=== PATIENT | female | born 1960 ===

== ENCOUNTER 2016-10-22 22:47 | Emergency (ER) | payer MEDICAID ==
[2016-10-22 22:47] VITALS: BMI 22.3
[2016-10-22 23:08] VITALS: PULSE 81; TEMP 98.8; O2SAT 95
--- NOTE | 2016-10-22 23:35 | ED PDOC ---
Arrival/HPI - General Chief Complaint: Anxiety Time Seen by Provider: 10/22/16 23:30 Historian: Patient - History of Present Illness Narrative History of Present Illness (Text): 10/22/16 23:30 56 y/o female, pmh including hyperthyroidism/pneumonia, psychiatric history of anxiety, post menopausal, nkda, c/o feeling anxious and scared tonight x 2 hours. pt. stated that she was at home taking care of her son's baby which the son has not been coming home tonight, very concern, started to get anxious, refused psychiatric evaluation, no homicidal or suicidal ideation, no auditory or visual hallucination, no other medical or psychological complaints. Past Medical History - Provider Review Nursing Documentation Reviewed: Yes - Infectious Disease Hx of Infectious Diseases: None - Tetanus Immunization Tetanus Immunization: Unknown - Cardiac Hx Cardiac Disorders: Yes - Pulmonary Hx Respiratory Disorders: Yes Hx Bronchitis: Yes - Neurological Hx Neurological Disorder: No - HEENT Hx HEENT Disorder: No - Renal Hx Renal Disorder: No - Endocrine/Metabolic Hx Endocrine Disorders: Yes ("pre diabetic") - Hematological/Oncological Hx Blood Disorders: No - Integumentary Hx Dermatological Disorder: No - Musculoskeletal/Rheumatological Hx Musculoskeletal Disorders: Yes Hx Arthritis: Yes Hx Herniated Disk: Yes Other/Comment: FIBROMYALGIA - Gastrointestinal Hx Gastrointestinal Disorders: Yes Other/Comment: INGUINAL HERNIA REPAIR L - Genitourinary/Gynecological Hx Genitourinary Disorders: No - Psychiatric Hx Psychophysiologic Disorder: Yes Hx Anxiety: Yes Hx Bipolar Disorder: Yes Hx Depression: Yes Hx Substance Use: No - Surgical History Hx Section: Yes Other/Comment: hernia - Anesthesia Hx Anesthesia: Yes Hx Anesthesia Reactions: No Hx Malignant Hyperthermia: No - Suicidal Assessment Feels Threatened In Home Enviroment: No Family/Social History - Physician Review Nursing Documentation Reviewed: Yes Family/Social History: Unknown Family HX Smoking Status: Never Smoked Hx Alcohol Use: No Hx Substance Use: No Hx Substance Use Treatment: No Allergies/Home Meds Allergies/Adverse Reactions: Allergies No Known Allergies Allergy (Verified 05/28/16 12:30) Home Medications: Home Meds Medication Instructions Recorded Confirmed RX: Unobtainable 10/22/16 10/22/16 Review of Systems - Review of Systems Constitutional: absent: Fatigue, Fevers Eyes: absent: Vision Changes ENT: absent: Hearing Changes Respiratory: absent: SOB, Cough Cardiovascular: absent: Chest Pain Gastrointestinal: absent: Abdominal Pain, Nausea, Vomiting Skin: absent: Rash, Pruritis, Skin Lesions Neurological: absent: Headache, Dizziness, Focal Weakness Psychiatric: Anxiety. absent: Depression, Suicidal Ideation Physical Exam Vital Signs Reviewed: Yes Vital Signs Temp Pulse Resp BP Pulse Ox 10/22/16 23:04 98.8 F 81 18 112/60 95 Temperature: Afebrile Blood Pressure: Normal Pulse: Regular Respiratory Rate: Normal Appearance: Positive for: Well-Appearing, Non-Toxic Pain Distress: None Mental Status: Positive for: Alert and Oriented X 3 - Systems Exam Head: Present: Atraumatic, Normocephalic Pupils: Present: PERRL Extroacular Muscles: Present: EOMI Conjunctiva: Present: Normal Mouth: Present: Moist Mucous Membranes Neck: Present: Normal Range of Motion Respiratory/Chest: Present: Clear to Auscultation, Good Air Exchange. No: Respiratory Distress, Accessory Muscle Use Cardiovascular: Present: Regular Rate and Rhythm, Normal S1, S2. No: Murmurs Abdomen: Present: Normal Bowel Sounds. No: Tenderness, Distention, Peritoneal Signs Back: Present: Normal Inspection Upper Extremity: Present: Normal Inspection. No: Cyanosis, Edema Lower Extremity: Present: Normal Inspection. No: Edema Neurological: Present: GCS=15, Speech Normal, Motor Func Grossly Intact, Gait Normal, Memory Normal Skin: Present: Warm, Dry, Normal Color. No: Rashes Psychiatric: Present: Alert, Oriented x 3, Normal Insight, Normal Concentration , Anxious Medical Decision Making ED Course and Treatment: 10/22/16 23:38 -ekg -thyroid panel -xanax 0.5mg po -observe and reassess 10/23/16 01:44 -EKG: NSR @ 74 BPM, no ST elevation or depression, no T wave inversion, compared with previous ekg. -Pt. stated that she feels completely relief now, smiling and laughing, non- anxious, comfortable, wants to be discharged home, will discharge home. -Discharge home with education on avoid caffeine products, follow up with your own pmd and psychiatrist within 2 days, return to the ER for any new or worsening signs or symptoms. - EKG Interpretation EKG Interpretation (Text): 10/23/16 01:02 NSR @ 74 BPM, no ST elevation or depression, no T wave inversion, compared with previous ekg. Interpreted by ED Physician: Yes Type: 12 lead EKG Comparison: Com.w/previous EKG - Medication Orders Current Medication Orders: Discontinued Medications Alprazolam (Xanax) 0.5 mg PO STAT STA PRN Reason: Protocol Stop: 10/22/16 23:36 Last Admin: 10/23/16 00:15 Dose: 0.5 mg - PA / DENTAL APPLIANCE MECHANIC / Resident Statement / has reviewed & agrees with the documentation as recorded. Disposition/Present on Arrival - Present on Arrival Any Indicators Present on Arrival: No History of DVT/PE: No History of Uncontrolled Diabetes: No Urinary Catheter: No History of Decub. Ulcer: No History Surgical Site Infection Following: None - Disposition Have Diagnosis and Disposition been Completed?: Yes Diagnosis: Anxiety Disposition Time: 01:46 Patient Plan: Discharge Condition: IMPROVED Additional Instructions: Discharge home with education on avoid caffeine products, follow up with your own pmd and psychiatrist within 2 days, return to the ER for any new or worsening signs or symptoms. Referrals: Isabel Amin DO [Primary Care Provider] - Follow up with primary [facility] [place] [Outside] - Follow up with primary [facility] [Outside] - Follow up with primary Forms: WORK NOTE
[2016-10-23 01:35] LABS: FREE T4 1.02 ng/dL (0.78-2.19)
[2016-10-23 01:49] LABS: THYROID STIMULATING HORMONE 1.25 mIU/mL (0.46-4.68)
[2016-10-23 02:08] VITALS: BP 115/43; RESP 16
--- NOTE | 2016-10-23 15:18 | CARD ---
APPROVED REPORT EKG Measurement Heart [id number] <Conclusion> Normal sinus rhythm Normal ECG
== END 2016-10-23 02:08 | disposition home or self-care (01) ==
LOC: ED 22:47
DX: F41.9 Anxiety disorder, unspecified (principal)

== ENCOUNTER 2016-12-11 17:30 | Emergency (ER) | payer MEDICAID ==
[2016-12-11 17:30] VITALS: BMI 22.3
[2016-12-11 18:35] VITALS: TEMP 98.3
[2016-12-11 18:36] LABS: BASO # 0.07 K/mm3 (0.0-2.0); EOS # 0.1 (0.0-0.7); EOS % 1.1 % (1.5-5.0); GRAN # 3.72 (1.4-6.5); GRAN % 51.7 % (50.0-68.0); HEMOGLOBIN 13.6 gm/dL (12.0-16.0); LYMPH # 2.9 (1.2-3.4); LYMPH % 39.9 % (22.0-35.0); MEAN CELL VOLUME 88.8 fL (80.0-105.0); MEAN CORPUSCULAR HGB CONC 34.9 g/dl (31.0-37.0); MONO # 0.5 (0.1-0.6); MONO % 6.3 % (1.0-6.0); PLATELET COUNT 321 10^3/uL (120.0-450.0); RBC 4.39 10^6/uL (3.5-6.1); RED CELL DISTRIBUTION WIDTH 13.1 % (11.5-14.5); WHITE BLOOD COUNT 7.2 10^3/ul (4.5-11.0)
[2016-12-11 18:40] LABS: PH,URINE 6.5 (4.7-8.0); URINE BILIRUBIN NEGATIVE (NEGATIVE); URINE BLOOD NEGATIVE (NEGATIVE); URINE GLUCOSE (UA) NEGATIVE (NEGATIVE); URINE LEUKOCYTE ESTERASE NEGATIVE Leu/uL (NEGATIVE); URINE NITRATE NEGATIVE (NEGATIVE); URINE PROTEIN NEGATIVE mg/dL (<30 mg/dL); URINE UROBILINOGEN 0.2 E.U./dL (<1 E.U./dL)
[2016-12-11 18:48] LABS: URINE APPEARANCE CLEAR (CLEAR); URINE COLOR YELLOW (YELLOW)
[2016-12-11 19:18] LABS: ALB/GLOB RATIO 1.4 (1.1-1.8); ALBUMIN 4.5 g/dL (3.0-4.8); ALT/SGPT 31 U/L (7-56); AST/SGOT 35 U/L (15-39); BLOOD UREA NITROGEN 17 mg/dL (7-21); CALCIUM 9.2 mg/dL (8.4-10.5); GFR AFRICAN-AMERICAN > 60; GFR NON-AFRICAN AMERICAN > 60
--- NOTE | 2016-12-11 19:49 | CT ---
EXAM: CT Abdomen and Pelvis Without Intravenous Contrast CLINICAL HISTORY: 56 years old, female; Pain; Abdominal pain; Localized; Left lower quadrant (llq); Prior surgery; Surgery date: 6+ months; Surgery type: Hernia 2011; Additional info: Llq abdominalpain/pelvis TECHNIQUE: Axial computed tomography images of the abdomen and pelvis without intravenous contrast. This CT exam was performed using one or more of the following dose reduction techniques: automated exposure control, adjustment of the mA and/or kV according to patient size, and/or use of iterative reconstruction technique. Coronal and sagittal reformatted images were created and reviewed. EXAM DATE/TIME: 12/11/2016 6:19 PM COMPARISON: CT - PELVIS W/O CONTRAST 10/04/2016 11:17:49 AM FINDINGS: Lower thorax: Heart size is normal. There is a small hiatal hernia. There is minimal scarring at the lung bases. ABDOMEN: Liver: unremarkable Gallbladder and bile ducts: unremarkable Pancreas: unremarkable Spleen: unremarkable Adrenals: unremarkable Kidneys and ureters: unremarkable Stomach and bowel: Lack of intravenous contrast limits evaluation of solid viscera and bowel. Stomach is distended with a large amount of ingested material. The patient is normal. There is no small bowel obstruction. Terminal ileum is unremarkable. Appendix is unremarkable. There is a moderately large amount of stool in the colon. Appendix: See stomach and bowel PELVIS: Bladder: Urinary bladder is partially distended. Reproductive: Uterus and adnexal structures are unremarkable.. There is a dominant follicle in the right ovary. ABDOMEN and PELVIS: Intraperitoneal space: There is no free air.There is no significant fluid. Bones/joints: There are degenerative changes in the osseus structures. There is a bone island in the left ilium. Soft tissues: There is a fat-containing umbilical hernia. Vasculature: There are calcified phleboliths. Vascular structures are unremarkable. Lymph nodes: There is no pathologic adenopathy. IMPRESSION: Limited evaluation of solid viscera due to lack of intravenous contrast, no acute solid visceral abnormality identified; no renal or ureteral stones or hydronephrosis; constipation; degenerative osseous change Additional findings as described above.
--- NOTE | 2016-12-11 20:40 | US ---
EXAM: US Pelvis Complete, Transabdominal CLINICAL HISTORY: 56 years old, female; Pain; Pelvic pain; Additional info: Left lower pelvic pain postmenopausal for 1 year TECHNIQUE: Real-time transabdominal pelvic ultrasound (complete) with image documentation. COMPARISON: CT abdomen and pelvis 12/11/16 FINDINGS: Uterus: Uterus measures approximately 8.5 x 3.4 x 4.3 cm. Endometrium measures approximate 9.1 mm in width. Right ovary: Right ovary measures approximately 2.8 x 2 x 2.7 cm. There is a dominant follicle. Left ovary: Left ovary measures approximately 3.6 x 2.4 x 2.4 cm. There are small follicles Free fluid: No free fluid. Bladder: Is only partially distended IMPRESSION: Mildly prominent endometrium; dominant follicle in the right ovary EXAM: US Pelvis, Transvaginal CLINICAL HISTORY: 56 years old, female; Pain; Pelvic pain; Additional info: Left lower pelvic pain TECHNIQUE: Real-time transvaginal pelvic ultrasound (complete) with image documentation. Transvaginal imaging was used for better evaluation of the endometrium and adnexa. EXAM DATE/TIME: 12/11/2016 6:19 PM COMPARISON: CT abdomen and pelvis 12/11/16 FINDINGS: Uterus: Endometrium measures 10.1 mm in width. The cervix measures approximately 3.5 cm in length. There are nabothian cysts in the cervix. Right ovary: Right ovary measures 2.98 x 1.59 x 2.42 cm. There is a dominant follicle, less than 2 cm in diameter.There is expected blood flow on Doppler imaging Left ovary: Left ovary measures 2.12 x 1.28 x 2.12 cm. There are multiple follicles. There is expected blood flow on Doppler imaging Free fluid: There is no free fluid. Adnexa: There no adnexal masses IMPRESSION: Follicles in both ovaries, no torsion; thickened endometrium
[2016-12-11 20:52] VITALS: BP 106/65; PULSE 77; RESP 18; O2SAT 99
--- NOTE | 2016-12-11 21:40 | ED PDOC ---
Arrival/HPI - General Chief Complaint: Lower Extremity Problem/Injury Time Seen by Provider: 12/11/16 17:54 Historian: Patient - History of Present Illness Narrative History of Present Illness (Text): 12/11/16 21:41 56yr old female presents today with worsening left lower abdominal pain and left sided hip pain. pt states she has been having intermittent left sided abdominal pain patient states she had a CAT scan that showed a questionable finding in the left iliac bone. Patient states she's been having continued pain since then. Patient denies fevers or chills. No nausea vomiting diarrhea or constipation. Denies urinary symptoms. No bladder or bowel incontinence. Patient denies back pain. Patient denies numbness weakness or tingling in the lower extremity. Patient states she has a follow-up appointment with the orthopedist on December 18. Time/Duration: > month Symptom Onset: Gradual Symptom Course: Worsening Quality: Aching, Pressure Severity Level: 4 Past Medical History - Provider Review Nursing Documentation Reviewed: Yes - Travel History Have you recently traveled outside [place] w/in the past 3 mons?: No - Infectious Disease Hx of Infectious Diseases: None - Tetanus Immunization Tetanus Immunization: Unknown - Cardiac Hx Cardiac Disorders: Yes - Pulmonary Hx Respiratory Disorders: Yes Hx Bronchitis: Yes - Neurological Hx Neurological Disorder: No - HEENT Hx HEENT Disorder: No - Renal Hx Renal Disorder: No - Endocrine/Metabolic Hx Endocrine Disorders: Yes ("pre diabetic") - Hematological/Oncological Hx Blood Disorders: No - Integumentary Hx Dermatological Disorder: No - Musculoskeletal/Rheumatological Hx Musculoskeletal Disorders: Yes Hx Arthritis: Yes Hx Herniated Disk: Yes Hx Osteoporosis: Yes Other/Comment: FIBROMYALGIA - Gastrointestinal Hx Gastrointestinal Disorders: Yes Other/Comment: INGUINAL HERNIA REPAIR L - Genitourinary/Gynecological Hx Genitourinary Disorders: No - Psychiatric Hx Psychophysiologic Disorder: Yes Hx Anxiety: Yes Hx Bipolar Disorder: Yes Hx Depression: Yes Hx Substance Use: No - Surgical History Hx Section: Yes Other/Comment: hernia - Anesthesia Hx Anesthesia: Yes Hx Anesthesia Reactions: No Hx Malignant Hyperthermia: No - Suicidal Assessment Feels Threatened In Home Enviroment: No Family/Social History - Physician Review Nursing Documentation Reviewed: Yes Family/Social History: Unknown Family HX Smoking Status: Never Smoked Hx Alcohol Use: No Hx Substance Use: No Hx Substance Use Treatment: No Allergies/Home Meds Allergies/Adverse Reactions: Allergies No Known Allergies Allergy (Verified 12/11/16 17:59) Home Medications: Home Meds Medication Instructions Recorded Confirmed Unobtainable 10/22/16 12/11/16 Review of Systems - Review of Systems Constitutional: absent: Fatigue, Fevers Respiratory: absent: SOB, Cough Cardiovascular: absent: Chest Pain, Palpitations Gastrointestinal: Abdominal Pain. absent: Constipation, Diarrhea, Nausea, Vomiting Genitourinary Female: absent: Dysuria, Frequency, Hematuria Musculoskeletal: Arthralgias (left hip pain) Skin: absent: Rash, Pruritis Neurological: absent: Headache, Dizziness Psychiatric: absent: Anxiety, Depression Physical Exam Vital Signs Reviewed: Yes Vital Signs Temp Pulse Resp BP Pulse Ox 12/11/16 20:51 77 18 106/65 99 12/11/16 18:34 98.3 F 80 17 104/70 100 Temperature: Afebrile Blood Pressure: Normal Pulse: Regular Respiratory Rate: Normal Appearance: Positive for: Well-Appearing, Non-Toxic, Comfortable Pain Distress: None Mental Status: Positive for: Alert and Oriented X 3 - Systems Exam Head: Present: Atraumatic Mouth: Present: Moist Mucous Membranes Respiratory/Chest: Present: Clear to Auscultation, Good Air Exchange. No: Respiratory Distress, Accessory Muscle Use Cardiovascular: Present: Regular Rate and Rhythm, Normal S1, S2. No: Murmurs Abdomen: Present: Tenderness (+ minimal LLQ tendeness), Normal Bowel Sounds. No : Distention, Peritoneal Signs, Rebound, Guarding Back: Present: Normal Inspection. No: CVA Tenderness, Midline Tenderness, Paraspinal Tenderness Lower Extremity: Present: NORMAL PULSES, Normal ROM, Tenderness (left hip + ttp over anterior aspect; no edema, no erythema; no ecchymosis; full rom of hip), Neurovascularly Intact, Capillary Refill < 2 s. No: CALF TENDERNESS, Swelling Neurological: Present: GCS=15 Skin: Present: Warm, Dry, Normal Color. No: Rashes Psychiatric: Present: Alert, Oriented x 3 Medical Decision Making ED Course and Treatment: 12/11/16 21:51 Patient is nontoxic well appearing with stable vital signs presenting with abdominal pain and left hip pain CBC wnl CMP glucose; 141 Urinalysis wnl Ultrasound:FINDINGS: Uterus: Uterus measures approximately 8.5 x 3.4 x 4.3 cm. Endometrium measures approximate 9.1 mm in width. Right ovary: Right ovary measures approximately 2.8 x 2 x 2.7 cm. There is a dominant follicle. Left ovary: Left ovary measures approximately 3.6 x 2.4 x 2.4 cm. There are small follicles Free fluid: No free fluid. Bladder: Is only partially distended IMPRESSION: Mildly prominent endometrium; dominant follicle in the right ovary EXAM: US Pelvis, Transvaginal CLINICAL HISTORY: 56 years old, female; Pain; Pelvic pain; Additional info: Left lower pelvic pain TECHNIQUE: Real-time transvaginal pelvic ultrasound (complete) with image documentation. Transvaginal imaging was used for better evaluation of the endometrium and adnexa. LINDSAY FUENTES | Final Radiology Report CONFIDENTIALITY STATEMENT This report is intended only for use by the referring physician, and only in accordance with law. If you received this in error, call [phone]. Page 2 of 2 EXAM DATE/TIME: 12/11/2016 6:19 PM COMPARISON: CT abdomen and pelvis 12/11/16 FINDINGS: Uterus: Endometrium measures 10.1 mm in width. The cervix measures approximately 3.5 cm in length. There are nabothian cysts in the cervix. Right ovary: Right ovary measures 2.98 x 1.59 x 2.42 cm. There is a dominant follicle, less than 2 cm in diameter.There is expected blood flow on Doppler imaging Left ovary: Left ovary measures 2.12 x 1.28 x 2.12 cm. There are multiple follicles. There is expected blood flow on Doppler imaging Free fluid: There is no free fluid. Adnexa: There no adnexal masses IMPRESSION: Follicles in both ovaries, no torsion; thickened endometrium CAT scan COMPARISON: CT - PELVIS W/O CONTRAST 10/04/2016 11:17:49 AM FINDINGS: Lower thorax: Heart size is normal. There is a small hiatal hernia. There is minimal scarring at the lung bases. ABDOMEN: Liver: unremarkable Gallbladder and bile ducts: unremarkable Pancreas: unremarkable Spleen: unremarkable Adrenals: unremarkable Kidneys and ureters: unremarkable Stomach and bowel: Lack of intravenous contrast limits evaluation of solid viscera and bowel. Stomach is distended with a large amount of ingested material. The patient is normal. There is no small bowel obstruction. Terminal ileum is unremarkable. Appendix is unremarkable. There is a moderately large amount of stool in the colon. Appendix: See stomach and bowel PELVIS: Bladder: Urinary bladder is partially distended. Reproductive: Uterus and adnexal structures are unremarkable.. There is a dominant follicle in the right ovary. ABDOMEN and PELVIS: Intraperitoneal space: There is no free air.There is no significant fluid. Bones/joints: There are degenerative changes in the osseus structures. There is a bone island in the left ilium. Soft tissues: There is a fat-containing umbilical hernia. Vasculature: There are calcified phleboliths. Vascular structures are unremarkable. Lymph nodes: There is no pathologic adenopathy. IMPRESSION: Limited evaluation of solid viscera due to lack of intravenous contrast, no acute solid visceral abnormality identified; no renal or ureteral stones or hydronephrosis; constipation; degenerative osseous change Additional findings as described above. Thank you for allowing us to participate in the care of Patient reassessment:pt non toxic well appearing; no distress. stable vitals. Discussed all results with patient in depth. advised not to miss appointment with orthopedist on december 18. Patient/parent verbalized full agreement with and understanding of discharge instructions. States that she agrees with the plan and disposition. Verbalized and repeated discharge instructions and plan. I have given her the opportunity to ask any additional questions. all aspects of this case were discussed the attending of record. Impression: Abdominal pain, hip pain Motrin every 6 hours as needed for pain Follow up with the orthopedist within the next 2 days. Follow up with primary care physician within the next 2 days Return immediately if symptoms worsen persist or if new symptoms develop: High fevers, increasing pain, vomiting, diarrhea or any other concerning symptoms develop - Lab Interpretations Lab Results: 12/11/16 18:25 12/11/16 18:25 Lab Results 12/11/16 18:25: WBC 7.2 D, RBC 4.39, Hgb 13.6, Hct 39.0, MCV 88.8, MCH 31.0, MCHC 34.9, RDW 13.1, Plt Count 321, MPV 10.0, Gran % 51.7, Lymph % (Auto) 39.9 H , [place] % (Auto) 6.3 H, Eos % (Auto) 1.1 L, Baso % (Auto) 1.0, Gran # 3.72, Lymph # 2.9, [place] # 0.5, Eos # 0.1, Baso # 0.07 12/11/16 18:25: Sodium 140, Potassium 3.6, Chloride 101, Carbon Dioxide 29, Anion Gap 14, BUN 17, Creatinine 0.7, Est GFR ( Amer) > 60, Est GFR (Non- Af Amer) > 60, Random Glucose 141 H, Calcium 9.2, Total Bilirubin 0.6, AST 35, ALT 31, Alkaline Phosphatase 78, Total Protein 7.6, Albumin 4.5, Globulin 3.1, Albumin/Globulin Ratio 1.4 12/11/16 18:25: Urine Color Yellow, Urine Appearance Clear, Urine pH 6.5, Ur Specific [place] <= 1.005, Urine Protein Negative, Urine Glucose (UA) Negative, Urine Ketones Negative, Urine Blood Negative, Urine Nitrate Negative, Urine Bilirubin Negative, Urine Urobilinogen 0.2, Ur Leukocyte Esterase Negative - RAD Interpretation Radiology Orders: 12/11/16 18:19 ABD & PELVIS W/O PO OR IV CONT [CT] Stat Hip Left [HIP MIN 2V W/ PELVIS LT] [RAD] Stat TRANSVAGINAL [US] Stat Disposition/Present on Arrival - Present on Arrival Any Indicators Present on Arrival: No History of DVT/PE: No History of Uncontrolled Diabetes: No Urinary Catheter: No History of Decub. Ulcer: No History Surgical Site Infection Following: None - Disposition Have Diagnosis and Disposition been Completed?: Yes Diagnosis: Hip pain, Abdominal pain, Pelvic pain Disposition: HOME/ ROUTINE Disposition Time: 21:37 Patient Plan: Discharge Condition: GOOD Discharge Instructions (ExitCare): Abdominal Pain (ED), Hip Pain (ED) Additional Instructions: motrin/ibuprofen; 400mg every 6 hours as needed for pain follow up with the primary care physician within the next 2 days follow up with the orthopedist within the next 2 days. return immediately if symptoms worsen,persist or if new symptoms develop. Referrals: Isabel Amin DO [Primary Care Provider] - Follow up with primary Sean Nam MD [Staff Provider] - Follow up with primary Forms: [employer] (Tajik), WORK NOTE
--- NOTE | 2016-12-12 07:56 | RAD ---
PROCEDURE: Left Hip with Pelvis X-ray Radiographs. HISTORY: hip pain COMPARISON: None. FINDINGS: BONES: Ovary appears intact significant stenosis. No suspicious lytic or blastic changes are identified including the sacrum and iliac bones. Degenerative changes are mild with bilateral hip and sacroiliac joints local soft tissues reflecting only phlebolith type type calcifications inferior pelvis which is similar to that seen prior and a KUB dated 08/14/2016. No fracture or dislocation seen involving the left hip joint as well. JOINTS: As above. SOFT TISSUES: As above. OTHER FINDINGS: None. IMPRESSION: Mild bilateral hip and sacroiliac joint osteoarthritis. No acute fracture or dislocation of the pelvic ring or the left hip joint.
== END 2016-12-11 21:48 | disposition home or self-care (01) ==
LOC: ED 17:30
DX: M25.552 Pain in left hip (principal); R10.2 Pelvic and perineal pain

== ENCOUNTER 2018-04-07 16:48 | Emergency (ER) | payer MEDICAID ==
[2018-04-07 16:49] VITALS: BMI 22.3
--- NOTE | 2018-04-07 17:16 | ED PDOC ---
Arrival/HPI - General Time Seen by Provider: 04/07/18 16:51 Historian: Patient - History of Present Illness Narrative History of Present Illness (Text): 04/07/18 17:16 58 year old female, with past medical history of herniated disc, presents to the Emergency department for evaluation of a transient episode of chest tightness prior to arrival. Patient states she was cleaning her fish tank at home when she experienced a sudden onset of chest tightness, which resolved spontaneously after a few minutes. Patient reports similar emergence of symptoms later in the day, which resolved spontaneously after burping. Patient worries symptoms maybe related to cardiac prompting her to present to the Emergency department for medical evaluation. Patient currently denies any chest tightness and states her symptoms resolved after burping. Patient denies any other associated somatic complaints. Patient denies any fever, chills, nausea, vomiting, diarrhea, abdominal pain, shortness of breath or any other complaints. Patient denies exacerbation of symptoms with movement and denies any unusual diet intake. Patient denies smoking cigarettes or drinking alcohol. PMD: Dr. Amin Time/Duration: Prior to Arrival Symptom Onset: Sudden Symptom Course: Resolved Quality: Tightness Activities at Onset: Light Context: Home Past Medical History - Provider Review Nursing Documentation Reviewed: Yes - Infectious Disease Hx of Infectious Diseases: None - Tetanus Immunization Tetanus Immunization: Unknown - Cardiac Hx Cardiac Disorders: Yes - Pulmonary Hx Respiratory Disorders: Yes Hx Bronchitis: Yes - Neurological Hx Neurological Disorder: No - HEENT Hx HEENT Disorder: No - Renal Hx Renal Disorder: No - Endocrine/Metabolic Hx Endocrine Disorders: Yes ("pre diabetic") - Hematological/Oncological Hx Blood Disorders: No - Integumentary Hx Dermatological Disorder: No - Musculoskeletal/Rheumatological Hx Musculoskeletal Disorders: Yes Hx Arthritis: Yes Hx Herniated Disk: Yes Hx Osteoporosis: Yes Other/Comment: FIBROMYALGIA - Gastrointestinal Hx Gastrointestinal Disorders: Yes Other/Comment: INGUINAL HERNIA REPAIR L - Genitourinary/Gynecological Hx Genitourinary Disorders: No - Psychiatric Hx Psychophysiologic Disorder: Yes Hx Anxiety: Yes Hx Bipolar Disorder: Yes Hx Depression: Yes Hx Substance Use: No - Surgical History Hx Section: Yes Other/Comment: hernia - Anesthesia Hx Anesthesia: Yes Hx Anesthesia Reactions: No Hx Malignant Hyperthermia: No - Suicidal Assessment Feels Threatened In Home Enviroment: No Family/Social History - Physician Review Nursing Documentation Reviewed: Yes Family/Social History: Unknown Family HX Smoking Status: Never Smoked Hx Alcohol Use: No Hx Substance Use: No Hx Substance Use Treatment: No Allergies/Home Meds Allergies/Adverse Reactions: Allergies No Known Allergies Allergy (Verified 12/11/16 17:59) Review of Systems - Physician Review All systems were reviewed & negative as marked: Yes - Review of Systems Constitutional: absent: Fevers Respiratory: absent: SOB, Cough Cardiovascular: absent: Chest Pain Gastrointestinal: absent: Abdominal Pain, Diarrhea, Nausea, Vomiting Genitourinary Female: absent: Dysuria Musculoskeletal: absent: Back Pain, Neck Pain Skin: absent: Rash Neurological: absent: Headache, Dizziness Physical Exam Vital Signs Reviewed: Yes Vital Signs Temp Pulse Resp BP Pulse Ox 04/07/18 17:05 97.6 F 82 16 115/76 99 Temperature: Afebrile Blood Pressure: Normal Pulse: Regular Respiratory Rate: Normal Appearance: Positive for: Well-Appearing, Non-Toxic, Comfortable Pain Distress: None Mental Status: Positive for: Alert and Oriented X 3 - Systems Exam Head: Present: Atraumatic, Normocephalic Pupils: Present: PERRL Extroacular Muscles: Present: EOMI Conjunctiva: Present: Normal Neck: Present: Normal Range of Motion Respiratory/Chest: Present: Clear to Auscultation, Good Air Exchange. No: Respiratory Distress, Accessory Muscle Use Cardiovascular: Present: Regular Rate and Rhythm, Normal S1, S2. No: Murmurs Abdomen: No: Tenderness, Distention, Peritoneal Signs Back: Present: Normal Inspection Upper Extremity: Present: Normal Inspection. No: Cyanosis, Edema Lower Extremity: Present: Normal Inspection. No: Edema Neurological: Present: GCS=15, CN II-XII Intact, Speech Normal Skin: Present: Warm, Dry, Normal Color. No: Rashes Psychiatric: Present: Alert, Oriented x 3, Normal Insight, Normal Concentration Medical Decision Making ED Course and Treatment: 04/07/18 17:18 Impression: 58 year old female presents to the Emergency department complaining of a transient episode of chest tightness. Plan: -- EKG -- Labs -- Chest X- Ray -- Urinalysis -- Reassess and disposition Prior Visits: Notes and results from previous visits were reviewed. Progress Notes: 04/07/18 17:18 EKG reviewed, shows NSR @77 bpm, no acute ST/T wave changes. 04/07/18 19:58 Labs reviewed, shows no concerning factors. Troponin negative. Will repeat troponin for confirmation. Urinalysis shows UTI. - EKG Interpretation Interpreted by ED Physician: Yes Type: 12 lead EKG - Scribe Statement The provider has reviewed the documentation as recorded by the Scribe Keshia Hamilton. All medical record entries made by the Scribe were at my direction and personally dictated by me. I have reviewed the chart and agree that the record accurately reflects my personal performance of the history, physical exam, medical decision making, and the department course for this patient. I have also personally directed, reviewed, and agree with the discharge instructions and disposition. Disposition/Present on Arrival - Present on Arrival History of DVT/PE: No History of Uncontrolled Diabetes: No Urinary Catheter: No History Surgical Site Infection Following: None - Disposition Diagnosis: Chest pain, UTI (urinary tract infection) Patient Problems: Current Active Problems Problem Status Onset Chest pain Acute UTI (urinary tract infection) Acute Discharge Instructions (ExitCare): Urinary Tract Infections in Adults, Chest Pain, Chest Pain (ED) Additional Instructions: follow up with your primary doctor in 1-2 days return to the ED with any worsening or concerning symptoms Prescriptions: Nitrofurantoin Macrocrystals [Macrobid] 100 mg PO BID #14 cap Referrals: Isabel Amin DO [Primary Care Provider] - Follow up with primary Forms: [employer] ([employer]) - Notes Notes (Text): 04/07/18 20:46 signout 9 pm pending repeat troponin
[2018-04-07 17:34] LABS: PH,URINE 7.5 (4.7-8.0); URINE BILIRUBIN NEGATIVE (NEGATIVE); URINE BLOOD TRACE-INTACT (NEGATIVE); URINE GLUCOSE (UA) NEGATIVE (NEGATIVE); URINE LEUKOCYTE ESTERASE LARGE Leu/uL (NEGATIVE); URINE PROTEIN NEGATIVE mg/dL (<30 mg/dL); URINE UROBILINOGEN 0.2 E.U./dL (<1 E.U./dL)
[2018-04-07 17:36] LABS: URINE APPEARANCE TURBID (CLEAR); URINE COLOR YELLOW (YELLOW)
[2018-04-07 17:40] LABS: URINE BACTERIA FEW (NEG); URINE RBC 0 - 2 /hpf (0-2)
[2018-04-07 18:05] LABS: BASO # 0.11 K/mm3 (0.0-2.0); BASO % 2.3 % (0.0-3.0); EOS # 0.1 (0.0-0.7); EOS % 2.5 % (1.5-5.0); GRAN # 1.68 (1.4-6.5); GRAN % 34.5 % (50.0-68.0); HEMOGLOBIN 13.1 g/dL (12.0-16.0); LYMPH # 2.7 (1.2-3.4); LYMPH % 54.9 % (22.0-35.0); MEAN CELL VOLUME 88.9 fl (80.0-105.0); MEAN CORPUSCULAR HEMOGLOBIN 30.3 pg (25.0-35.0); MEAN PLATELET VOLUME 9.9 fl (7.0-11.0); MONO # 0.3 (0.1-0.6); MONO % 5.8 % (1.0-6.0); RBC 4.33 10^6/uL (3.5-6.1); RED CELL DISTRIBUTION WIDTH 12.3 % (11.5-14.5); WHITE BLOOD COUNT 4.9 10^3/uL (4.5-11.0)
[2018-04-07 18:06] LABS: ALB/GLOB RATIO 1.5 (1.1-1.8); ALBUMIN 4.3 g/dL (3.0-4.8); ALT/SGPT 36 U/L (7-56); AST/SGOT 36 U/L (14-36); BLOOD UREA NITROGEN 15 mg/dL (7-21); CALCIUM 9.9 mg/dL (8.4-10.5); GFR NON-AFRICAN AMERICAN > 60
[2018-04-07 18:16] LABS: TROPONIN I < 0.01 ng/mL
--- NOTE | 2018-04-07 21:25 | ED PDOC ---
Physical Exam Vital Signs Temp Pulse Resp BP Pulse Ox 04/07/18 17:05 97.6 F 82 16 115/76 99 Medical Decision Making ED Course and Treatment: 04/07/18 21:00 Case endorsed to me by Dr. Rodriguez, pending repeat troponin, reassessment, and discharge. - Lab Interpretations Lab Results: 04/07/18 17:45 04/07/18 17:45 Lab Results 04/07/18 17:45: Sodium 138, Potassium 4.0, Chloride 103, Carbon Dioxide 30, Anion Gap 9 L, BUN 15, Creatinine 0.6 L, Est GFR ( Amer) > 60, Est GFR (Non-Af Amer) > 60, Random Glucose 93, Calcium 9.9, Total Bilirubin 0.3, AST 36, ALT 36, Alkaline Phosphatase 93, Lactate Dehydrogenase 425, Total Creatine Kinase 78, Troponin I < 0.01, Total Protein 7.2, Albumin 4.3, Globulin 2.9, Albumin/Globulin Ratio 1.5 04/07/18 17:45: WBC 4.9, RBC 4.33, Hgb 13.1, Hct 38.5, MCV 88.9, MCH 30.3, MCHC 34.0, RDW 12.3, Plt Count 301, MPV 9.9, Gran % 34.5 L, Lymph % (Auto) 54.9 H, Sebastian % (Auto) 5.8, Eos % (Auto) 2.5, Baso % (Auto) 2.3, Gran # 1.68, Lymph # (Auto) 2.7, Sebastian # (Auto) 0.3, Eos # (Auto) 0.1, Baso # (Auto) 0.11 04/07/18 17:26: Urine Color Yellow, Urine Appearance Turbid, Urine pH 7.5, Ur Specific Marquez 1.010, Urine Protein Negative, Urine Glucose (UA) Negative, Ur ine Ketones Negative, Urine Blood Trace-intact H, Urine Nitrate Negative, Urine Bilirubin Negative, Urine Urobilinogen 0.2, Ur Leukocyte Esterase Large H, Urine RBC 0 - 2, Urine WBC 5 - 10, Urine Bacteria Few - RAD Interpretation Radiology Orders: 04/07/18 17:18 CHEST TWO VIEWS (PA/LAT) [RAD] Stat Disposition/Present on Arrival - Present on Arrival Any Indicators Present on Arrival: No History of DVT/PE: No History of Uncontrolled Diabetes: No Urinary Catheter: No History of Decub. Ulcer: No History Surgical Site Infection Following: None - Disposition Have Diagnosis and Disposition been Completed?: Yes Diagnosis: Chest pain, UTI (urinary tract infection) Disposition: HOME/ ROUTINE Disposition Time: 22:45 Condition: GOOD Discharge Instructions (ExitCare): Urinary Tract Infections in Adults, Chest Pain, Chest Pain (ED) Additional Instructions: follow up with your primary doctor in 1-2 days return to the ED with any worsening or concerning symptoms Prescriptions: Nitrofurantoin Macrocrystals [Macrobid] 100 mg PO BID #14 cap Referrals: Isabel Amin DO [Primary Care Provider] - Follow up with primary Forms: [employer] ([place])
[2018-04-07 23:32] VITALS: RESP 17; O2SAT 98
[2018-04-08 02:24] VITALS: BP 126/89; PULSE 88; TEMP 98.1
--- NOTE | 2018-04-08 08:08 | CARD ---
APPROVED REPORT Date of service: 04/07/2018 EKG Measurement Heart [id number] <Conclusion> Sinus rhythm with sinus arrhythmia Normal ECG
--- NOTE | 2018-04-08 10:39 | RAD ---
Date of service: 04/07/2018 HISTORY: Chest pain. COMPARISON: 02/05/2016 TECHNIQUE: Chest PA and lateral FINDINGS: LUNGS: No active pulmonary disease. PLEURA: No significant pleural effusion identified. No pneumothorax apparent. CARDIOVASCULAR: No aortic atherosclerotic calcification present. Normal cardiac size. No pulmonary vascular congestion. OSSEOUS STRUCTURES: No significant abnormalities. VISUALIZED UPPER ABDOMEN: Normal. OTHER FINDINGS: None. IMPRESSION: No active disease. No significant interval change compared to the prior examination(s).
--- NOTE | 2018-04-10 16:24 | ED PDOC ---
ED Additional Note - Physician Additional Note Physician Additional Note: called patient and spoke with patient regarding Urine culture. culture shows + pseudomonas. sensitive to Cipro. pt was placed on macrobid for uti. she was advised to stop macrobid and start cipro x 3 days. pt was advised to f/u with pmd after complete of treatment to check for resolution of infection. pt verbalized understanding of need for f/u. advised return if any concerning symptoms develop.
== END 2018-04-08 00:01 | disposition home or self-care (01) ==
LOC: ED 16:48
DX: R07.9 Chest pain, unspecified (principal); N39.0 Urinary tract infection, site not specified; F41.9 Anxiety disorder, unspecified

== ENCOUNTER 2018-04-12 22:35 | Emergency (ER) | payer MEDICAID ==
[2018-04-12 22:49] VITALS: BMI 20.7
[2018-04-12 23:49] VITALS: BP 106/68; PULSE 86; RESP 17; TEMP 98.2; O2SAT 98
--- NOTE | 2018-04-13 00:30 | ED PDOC ---
Arrival/HPI - General Chief Complaint: Palpitations Time Seen by Provider: 04/12/18 22:40 Historian: Patient - History of Present Illness Narrative History of Present Illness (Text): 04/13/18 22:40 58 year old female, whose past medical history includes herniated disc, who presents to the Emergency department complaining of feeling anxious and palpitations after starting Ciprofloxacin. Patient was recently in the Emergency department and started on Macrobid, but was called on 04/10 to switch antibiotics and be started on Cipro. Patient states since starting Cipro, she has had these symptoms. Patient denies any symptoms at this time. Patient denies chest pain, shortness of breath, dysuria at anytime, or any other complaints. PMD: Isabel Rabago V Time/Duration: Other (Patient notes symptoms ever since being switched from Macrobid to Cipro) Symptom Onset: Sudden Symptom Course: Unchanged Activities at Onset: Light Past Medical History - Provider Review Nursing Documentation Reviewed: Yes - Infectious Disease Hx of Infectious Diseases: None - Tetanus Immunization Tetanus Immunization: Unknown - Cardiac Hx Cardiac Disorders: No - Pulmonary Hx Respiratory Disorders: Yes Hx Bronchitis: Yes - Neurological Hx Neurological Disorder: No - HEENT Hx HEENT Disorder: No - Renal Hx Renal Disorder: No - Endocrine/Metabolic Hx Endocrine Disorders: Yes ("pre diabetic") - Hematological/Oncological Hx Blood Disorders: No - Integumentary Hx Dermatological Disorder: No - Musculoskeletal/Rheumatological Hx Musculoskeletal Disorders: Yes Hx Arthritis: Yes Hx Herniated Disk: Yes Hx Osteoporosis: Yes Other/Comment: FIBROMYALGIA - Gastrointestinal Hx Gastrointestinal Disorders: Yes Other/Comment: INGUINAL HERNIA REPAIR L - Genitourinary/Gynecological Hx Genitourinary Disorders: No - Psychiatric Hx Psychophysiologic Disorder: Yes Hx Anxiety: Yes Hx Bipolar Disorder: Yes Hx Depression: Yes Hx Substance Use: No - Surgical History Hx Section: Yes Other/Comment: hernia - Anesthesia Hx Anesthesia: Yes Hx Anesthesia Reactions: No Hx Malignant Hyperthermia: No - Suicidal Assessment Feels Threatened In Home Enviroment: No Family/Social History - Physician Review Nursing Documentation Reviewed: Yes Family/Social History: No Known Family HX Smoking Status: Never Smoked Hx Alcohol Use: No Hx Substance Use: No Hx Substance Use Treatment: No Allergies/Home Meds Allergies/Adverse Reactions: Allergies No Known Allergies Allergy (Verified 04/12/18 22:49) Review of Systems - Physician Review All systems were reviewed & negative as marked: Yes - Review of Systems Respiratory: Normal. absent: SOB Cardiovascular: Palpitations (patient notes palpitations ever since starting on Ciprofloxacin). absent: Normal, Chest Pain Genitourinary Female: Normal. absent: Dysuria (pt denies dysuria at any time) Psychiatric: Anxiety (Patient notes anxiety ever since starting on Ciprofloxacin). absent: Normal Physical Exam Vital Signs Reviewed: Yes Vital Signs Temp Pulse Resp BP Pulse Ox 04/12/18 23:49 98.2 F 86 17 106/68 98 04/12/18 23:03 98.5 F 85 16 97/62 L 97 Temperature: Afebrile Blood Pressure: Hypotensive Pulse: Regular Respiratory Rate: Normal Appearance: Positive for: Well-Appearing, Non-Toxic Pain Distress: None Mental Status: Positive for: Alert and Oriented X 3 - Systems Exam Head: Present: Atraumatic, Normocephalic Pupils: Present: PERRL Extroacular Muscles: Present: EOMI Conjunctiva: Present: Normal Mouth: Present: Moist Mucous Membranes Neck: Present: Normal Range of Motion Respiratory/Chest: Present: Clear to Auscultation, Good Air Exchange. No: Respiratory Distress, Accessory Muscle Use Cardiovascular: Present: Regular Rate and Rhythm, Normal S1, S2. No: Murmurs Abdomen: No: Tenderness, Distention, Peritoneal Signs Back: Present: Normal Inspection Upper Extremity: Present: Normal Inspection. No: Cyanosis, Edema Lower Extremity: Present: Normal Inspection. No: Edema Neurological: Present: GCS=15, CN II-XII Intact, Speech Normal Skin: Present: Warm, Dry, Normal Color. No: Rashes Psychiatric: Present: Alert, Oriented x 3, Normal Insight, Normal Concentration Medical Decision Making ED Course and Treatment: 04/13/18 22:40 Impression: 58 year old female who presents to the Emergency department complaining of feeling anxious and palpitations after starting Ciprofloxacin. Plan: -- EKG -- X-Ray of chest -- ED NPO (ED Only Order) -- Reassess and disposition Prior Visits: Notes and results from previous visits were reviewed. Patient was last seen in the emergency department on 04/07/18 or evaluation of a transient episode of chest tightness prior to arrival. Patient was discharged home in good condition with diagnosis of chest pain and UTI, directed to follow up with PMD in 1-2 days, and directed to return to Emergency department if any worsening/concerning symptoms. Prescriptions: Ciprofloxacin [Cipro] 500 mg PO BID #6 tab Nitrofurantoin Macrocrystals [Macrobid] 100 mg PO BID #14 cap Progress Notes: - RAD Interpretation Radiology Orders: 04/12/18 22:51 CHEST PORTABLE [RAD] Stat - EKG Interpretation EKG Interpretation (Text): EKG: Ordered, reviewed, and independently interpreted the EKG. Rate : 81 BPM Rhythm : NSR Interpretation : Normal axis and intervals. Interpreted by ED Physician: Yes Type: 12 lead EKG - Scribe Statement The provider has reviewed the documentation as recorded by the Scribe Linda Buitrago All medical record entries made by the Scribe were at my direction and personally dictated by me. I have reviewed the chart and agree that the record accurately reflects my personal performance of the history, physical exam, medical decision making, and the department course for this patient. I have also personally directed, reviewed, and agree with the discharge instructions and disposition. Disposition/Present on Arrival - Present on Arrival Any Indicators Present on Arrival: No History of DVT/PE: No History of Uncontrolled Diabetes: No Urinary Catheter: No History of Decub. Ulcer: No History Surgical Site Infection Following: None - Disposition Have Diagnosis and Disposition been Completed?: Yes Diagnosis: Side effect of medication Disposition: HOME/ ROUTINE Disposition Time: 23:35 Condition: GOOD Discharge Instructions (ExitCare): Side Effects From Medicines Additional Instructions: LINDSAY FUENTES, thank you for letting us take care of you today. The emergency medical care you received today was directed at your acute symptoms. If you were prescribed any medication, please fill it and take as directed. It may take several days for your symptoms to resolve. Return to the Emergency Department if your symptoms worsen, do not improve, or if you have any other problems. Please contact your doctor or call one of the physicians/clinics you have been referred to that are listed on the Patient Visit Information form that is included in your discharge packet. Bring any paperwork you were given at discharge with you along with any medications you are taking to your follow up visit. Our treatment cannot replace ongoing medical care by a primary care provider outside of the emergency department. Thank you for allowing the [facility] team to be part of your care today. Stop taking the ciprofloxacin and restart the macrobid. Follow up with your primary care doctor as scheduled. Referrals: [facility], [Non-Staff] - Follow up with primary Forms: [employer] ([place])
--- NOTE | 2018-04-13 09:24 | RAD ---
Date of service: 04/12/2018 HISTORY: palpitations COMPARISON: 04/07/2018 FINDINGS: LUNGS: No active pulmonary disease. PLEURA: No significant pleural effusion identified, no pneumothorax apparent. CARDIOVASCULAR: No aortic atherosclerotic calcification present. Normal cardiac size. No pulmonary vascular congestion. OSSEOUS STRUCTURES: No significant abnormalities. VISUALIZED UPPER ABDOMEN: Normal. OTHER FINDINGS: None. IMPRESSION: No active disease.
--- NOTE | 2018-04-13 09:43 | CARD ---
APPROVED REPORT Date of service: 04/12/2018 EKG Measurement Heart [id number] 110P67 [id number] <Conclusion> Sinus rhythm with short TX LVH by voltage No change except increased voltage V 5,6
== END 2018-04-12 23:49 | disposition home or self-care (01) ==
LOC: ED 22:35
DX: T88.7XXA Unspecified adverse effect of drug or medicament, initial encounter (principal); T36.8X5A Adverse effect of other systemic antibiotics, initial encounter; Y92.89 Other specified places as the place of occurrence of the external cause